=== PATIENT | male | born 1960 | race Caucasian/White ===

== ENCOUNTER 2018-07-17 19:50 | Emergency (ER) | payer SELFPAY ==
[~2018-07-17] VITALS: Ht 170.2 cm; Wt 64.0 kg
[2018-07-17] MEDS ORDERED: SODIUM CHLORIDE 0.9% 1,000 ML IV ONE ×2 (20:33→22:15)
[2018-07-17] MEDS ORDERED: MORPHINE SULFATE 4 MG/ML CPJ (NOT FOR IM USE) IV ONE ×2 (21:00→23:45)
[2018-07-17 21:55] LABS: EOSINOPHILS % 2.9 % (0.0-5.0); HEMATOCRIT. 36.5 % (42.0-52.0); HEMOGLOBIN. 12.6 g/dL (14.0-18.0); LYMPHOCYTES % 26.4 % (20.0-50.0); MEAN CORPUSCULAR HEMOGLOBIN 31.2 pg (28.0-32.0); MEAN CORPUSCULAR VOLUME 90.6 fL (80.0-94.0); MEAN PLATELET VOLUME 8.7 fl (7.4-10.4); MONOCYTES % 8.5 % (2.0-8.0); NEUTROPHILS % 60.2 % (40.0-76.0); PLATELET 184 x1000/uL (130-400); RED BLOOD CELL COUNT 4.02 mill/uL (4.7-6.1); RED CELL DISTRIBUTION WIDTH 13.5 % (11.6-14.6)
[2018-07-17 22:04] LABS: CHLORIDE 100 mEq/L (98-107)
[2018-07-17 22:14] LABS: INR 1.1; PROTHROMBIN TIME 10.8 sec (9.1-11.1)
[2018-07-17] MEDS ORDERED: INSULIN REGULAR (HUMULIN R) 300UNITS/3ML SUBCUT ONE ×2 (22:15→23:45)
[2018-07-17 23:01] LABS: CLARITY URINE CLEAR (CLEAR); COLOR URINE YELLOW (YELLOW); KETONES URINE NEGATIVE (NEGATIVE); LEUKOCYTE ESTERASE URINE NEGATIVE (NEGATIVE); NITRITE URINE NEGATIVE (NEGATIVE); OCCULT BLOOD URINE TRACE (NEGATIVE); PROTEIN URINE 2+ (NEGATIVE); SPECIFIC GRAVITY URINE 1.042 (1.005-1.030)
[2018-07-17] MEDS ORDERED: KETOROLAC 30MG/ML VIAL IV ONE (23:45)
[2018-07-18] MEDS ORDERED: TRAMADOL 50MG TABLET PO ONE (03:00)
[2018-07-18] MEDS ORDERED: IBUPROFEN 600MG TABLET PO ONE ×2 (11:45→21:00)
[2018-07-18] MEDS ORDERED: GLIPIZIDE 5MG TABLET PO SCH (13:45)
[2018-07-18] MEDS ORDERED: METFORMIN HCL 500MG TABLET PO ONE (13:45)
[2018-07-18] MEDS ORDERED: ACETAMINOPHEN 325MG TABLET PO STA (16:16)
[2018-07-18] MEDS ORDERED: SODIUM CHLORIDE 0.9% 1,000 ML IV ONE (16:16)
[2018-07-18] MEDS ORDERED: INSULIN REGULAR (HUMULIN R) UD 100 UNITS/ML SYR SUBCUT ONE (18:30)
[2018-07-18] MEDS ORDERED: INSULIN REGULAR (HUMULIN R) 300UNITS/3ML SUBCUT ONE (20:15)
[2018-07-19] MEDS ORDERED: ACETAMINOPHEN 325MG TABLET PO ONE (09:00)
[2018-07-19 10:41] VITALS: BP 166/92
== END 2018-07-19 10:45 | disposition home or self-care (01) ==
LOC: ER 19:57
DX: E11.65 Type 2 diabetes mellitus with hyperglycemia (principal); I10 Essential (primary) hypertension; J98.11 Atelectasis; F17.200 Nicotine dependence, unspecified, uncomplicated; Z86.19 Personal history of other infectious and parasitic diseases; Z88.0 Allergy status to penicillin; Z79.4 Long term (current) use of insulin; Z59.0 Homelessness
CPT/HCPCS: 36415; 71045; 80053; 81003; 82962; 83880; 84484; 85025; 85610; 93005; 96372; 96374; 96375; 96376; 99285; J1815; J1885; J2270; J7030; Z7610